=== PATIENT | male | born 1945 | race Caucasian/White ===

== ENCOUNTER 2023-01-12 06:25 | Observation (INO) | payer MEDICARE, SELFPAY ==
[2023-01-12] VITALS (16 sets, daily range): BP systolic 116–175; BP diastolic 63–87; PULSE 47–71; RESP 18–20; TEMP 36–36.6; O2SAT 96–100; BMI 29.3; BMI 29.7
--- NOTE | 2023-01-12 06:43 | DI.RAD.S_ITS ---
PROCEDURE: XR CHEST 1V INDICATIONS: chest pain TECHNIQUE: One view of the chest was acquired. COMPARISON: None. FINDINGS: Surgical changes and devices: None. Lungs and pleura: Lungs are clear. No pleural effusions or pneumothorax. Mediastinum: Mediastinal contours appear normal. Heart size is normal. Bones and chest wall: No suspicious bony lesions. Overlying soft tissues appear unremarkable. IMPRESSION: No acute cardiopulmonary abnormality. Approved by: Catalino Acosta M.D. on 01/12/2023 at 7:43
[2023-01-12 07:02] LABS: Add Manual Diff / Slide Review NO; Basophils Absolute Auto 0 /uL (0-100); Basophils Percent Auto 0.5 % (0-2); Eosinophils Absolute Auto 200 /uL (0-450); Hematocrit 40.2 % (41-53); Hemoglobin 14.3 g/dL (13.5-17.5); Lymphocytes Absolute Auto 1400 /uL (1100-4500); Lymphocytes Percent Auto 15.5 % (25-40); Mean Corpuscular HGB Conc 35.5 % (30-36); Mean Corpuscular Hemoglobin 32.4 PG (26-34); Mean Corpuscular Volume 91.2 fL (80-100); Monocytes Absolute Auto 800 /uL (0-900); Monocytes Percent Auto 9.5 % (3-14); Neutrophils Absolute Auto 6500 /uL (1500-7000); Neutrophils Percent Auto 72.5 % (50-75); Platelet Count 257 X10^3/uL (150-400); Red Blood Cell Count 4.41 X10^6/uL (4.5-5.9); Red Cell Distribution Width 13.8 % (11.6-14.8); White Blood Cell Count 8.9 X10^3/uL (4.5-11.0)
[2023-01-12 07:05] LABS: INR 1.1 (0.9-1.3); Prothrombin Time 12.3 SECONDS (10.1-12.7)
[2023-01-12 07:08] LABS: PTT Partial Thromboplastin Tim 29 SECONDS (26-36)
--- NOTE | 2023-01-12 07:09 | ED_ITS ---
HPI - Chest Pain General Chief Complaint: Chest Pain Stated Complaint: problem with lung getting worse Time Seen by Provider: 01/12/23 06:56 Source: patient Mode of arrival: Ambulatory Limitations: no limitations History of Present Illness HPI narrative: Patient is a 77-year-old male who is here for evaluation of approximately 5 days of intermittent chest pressure. States that at the beginning of the symptoms he did have some back discomfort but that has resolved. Initially he thought that he would just pulled a muscle because he just recently moved to the area and he has been moving some boxes but he states that it now does not feel like a pulled muscle. He does have a cough and has some baseline lung issues but this is not new for him. No nausea or vomiting. No fevers. He states the symptoms are not worse with palpation or movement. No swelling in his legs. Has never had a heart attack before. 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 Denies any fevers. Has not tried anything for symptoms prior to arrival. Related Data Home Medications Medication Instructions Recorded Confirmed losartan 25 mg tablet 25 mg PO DAILY 01/12/23 01/12/23 Allergies Allergy/AdvReac Type Severity Reaction Status Date / Time codeine AdvReac Verified 01/12/23 06:43 Iodinated Contrast Media AdvReac Swelling Verified 01/12/23 06:43 of the Eye Review of Systems Review of Systems ROS Unobtainable: All systems reviewed & are unremarkable except as noted in HPI and below Patient History Social History Smoking Status: Never smoker Smoking Status: Never smoker alcohol intake frequency: 0-2 drinks per day Substance Use Type: does not use Exam Initial Vital Signs Initial Vital Signs: Vital Signs Temperature 96.8 F L 01/12/23 06:33 Pulse Rate 71 01/12/23 06:33 Respiratory Rate 20 01/12/23 06:33 Blood Pressure 153/79 H 01/12/23 06:33 Pulse Oximetry 99 01/12/23 06:33 Oxygen Delivery Method Room Air 01/12/23 06:33 Const General: cooperative, comfortable and No ill appearing HENMT Head: normal to inspection and normocephalic Chest Chest: No crepitus and No tenderness Resp Effort & Inspection: normal respiratory effort Auscultation: clear to auscultation bilaterally Cardio Rate: regular rate Rhythm: regular rhythm GI Inspection: normal to inspection and non-distended Skin General: no rashes or lesions noted Neuro General: patient alert, patient awake, patient oriented x3 and moves all extremities Speech: speech normal Extrem General: No edema Scores HEART Score Heart Score history: Slightly Suspicious Heart Score EKG: Non-Specific repolarization disturbance Heart Score Age: > or = 65 years old Heart Score risk factors: 1-2 risk factors Heart Score troponin: < or = to normal limit Heart Score Total: 4 Course Orders Ordered: ED Orders 01/12/23 EKG-12 Lead Routine 01/12/23 06:43 XR chest 1V Stat EKG-12 Lead Stat 01/12/23 06:50 Complete Blood Count AUTO DIFF Stat Comprehensive Metabolic Panel Stat Lipase Stat Magnesium Stat PTT Partial Thromboplastin Ankit Stat Prothrombin Time INR Stat Troponin & CK Cardiac Panel Stat Discontinued Medications Aspirin (Aspirin 81 Mg Chew Tab) 324 mg PO NOW ONE Stop: 01/12/23 06:44 Last Admin: 01/12/23 07:35 Dose: 324 mg Documented By: AT Vital Signs Vital signs: Vital Signs - 8 hr 01/12/23 06:33 01/12/23 07:04 01/12/23 07:25 Temperature 96.8 F L Pulse Rate 71 55 L Respiratory Rate 20 Blood Pressure 153/79 H 150/84 H Pulse Oximetry 99 97 Oxygen Delivery Method Room Air Room Air 01/12/23 07:25 01/12/23 07:30 01/12/23 07:30 Temperature Pulse Rate 59 L 51 L Respiratory Rate Blood Pressure 130/63 Pulse Oximetry 97 98 Oxygen Delivery Method Room Air Room Air MDM - Chest Pain Lab Data Attestation: I reviewed the patient's lab results. 01/12/23 06:50 01/12/23 06:50 Labs: Lab Results 01/12/23 01/12/23 01/12/23 Range/Units 06:50 06:50 06:50 WBC 8.9 (4.5-11.0) X10^3/uL RBC 4.41 L (4.5-5.9) X10^6/uL Hgb 14.3 (13.5-17.5) g/dL Hct 40.2 L (41-53) % MCV 91.2 (80-100) fL MCH 32.4 (26-34) PG MCHC 35.5 (30-36) % RDW 13.8 (11.6-14.8) % Plt Count 257 (150-400) X10^3/uL Neut % (Auto) 72.5 (50-75) % Lymph % (Auto) 15.5 L (25-40) % [place] % (Auto) 9.5 (3-14) % Eos % (Auto) 2.0 (2-4) % Baso % (Auto) 0.5 (0-2) % Neut # (Auto) 6500 (8270-0107) /uL Lymph # (Auto) 1400 (7165-7457) /uL [place] # (Auto) 800 (0-900) /uL Eos # (Auto) 200 (0-450) /uL Baso # (Auto) 0 (0-100) /uL PT 12.3 (10.1-12.7) SECONDS INR 1.1 (0.9-1.3) APTT 29 (26-36) SECONDS Sodium 137 (137-145) mmol/L Potassium 4.2 (3.4-5.1) mmol/L Chloride 102 (98-107) mmol/L Carbon Dioxide 29 (22-32) mmol/L BUN 16 (9-20) mg/dL Creatinine 0.98 (0.66-1.25) mg/dL Estimated GFR > 60 (>60) mL/min BUN/Creatinine Ratio 16.3 (6-22) Glucose 103 (80-110) mg/dL Calcium 8.9 (8.4-10.2) mg/dL Magnesium 1.9 (1.6-2.3) mg/dL Total Bilirubin 1.4 H (0.2-1.3) mg/dL AST 30 (17-59) IU/L ALT 28 (<50) IU/L Alkaline Phosphatase 100 (38-126) U/L Total Creatine Kinase 219 H (55-170) U/L CK-MB (CK-2) TNP CK-MB (CK-2) Rel Index TNP Troponin I < 0.012 (0.01-0.034) ng/mL Total Protein 7.0 (6.3-8.2) g/dL Albumin 4.0 (3.5-5.0) g/dL Globulin 3.0 (1.7-4.1) g/dL Albumin/Globulin Ratio 1.3 (1.0-2.8) Lipase 93 (23-300) U/L Imaging Data Chest x-ray: Radiologist's Impression: PROCEDURE:? XR CHEST 1V ? INDICATIONS:? chest pain ? TECHNIQUE:? One view of the chest was acquired.? ? COMPARISON:? None. ? FINDINGS:? ? Surgical changes and devices:? None.? ? Lungs and pleura:? Lungs are clear.? No pleural effusions or pneumothorax.? ? Mediastinum:? Mediastinal contours appear normal.? Heart size is normal.? ? Bones and chest wall:? No suspicious bony lesions.? Overlying soft tissues appear unremarkable.? ? ECG Data Attestation: I personally reviewed and interpreted this ECG as follows: Interpretation: Sinus bradycardia Ventricular rate of 56 First-degree AV block CO interval 210 milliseconds Been right bundle-branch block Left anterior fascicular block Left axis deviation Nonspecific ST T wave changes MDM Narrative Medical decision making narrative: Patient has a heart score of 4. Given his age and other risk factors in his intermittent chest pressure over the past couple days in the fact that he does not have a primary care doctor because he is new to the area patient does require admission to the hospital for further risk stratification testing. I did discuss this with him and his . They expressed understanding and a greement. I also discussed the case with Dr. Lopez who will admit for further evaluation and treatment as well. Discharge Plan Departure Patient Disposition: Admitted as Observation Clinical Impression: Chest pain Admit Date/Time: 01/12/23 07:42 Admit Provider: Kay Lopez
[2023-01-12 07:13] LABS: Alanine Aminotransferase 28 IU/L (<50); Albumin Globulin Ratio 1.3 (1.0-2.8); Alkaline Phosphatase 100 U/L (38-126); Aspartate Aminotransferase 30 IU/L (17-59); BUN Creatinine Ratio 16.3 (6-22); Bilirubin Total 1.4 mg/dL (0.2-1.3); Blood Urea Nitrogen 16 mg/dL (9-20); Calcium 8.9 mg/dL (8.4-10.2); Carbon Dioxide 29 mmol/L (22-32); Chloride 102 mmol/L (98-107); Creatine Kinase 219 U/L (55-170); Estimated Glomerular Filt Rate > 60 mL/min (>60); Glucose 103 mg/dL (80-110); HEMOLYSIS 24 (0-50); Lipase 93 U/L (23-300); Magnesium 1.9 mg/dL (1.6-2.3); Potassium 4.2 mmol/L (3.4-5.1); Sodium 137 mmol/L (137-145)
[2023-01-12 07:24] LABS: Troponin I < 0.012 ng/mL (0.01-0.034)
[2023-01-12] MEDS: ASPIRIN 81 MG CHEW TAB 324 MG PO (07:35)
--- NOTE | 2023-01-12 10:10 | PM.HP.1 ---
History of Present Illness History of Present Illness Date Patient Seen: 01/12/23 Time Patient Seen: 09:45 Chief complaint: chest pain Narrative: Pt is 77 yo male with history of hypertension, chronic cough, brain aneurysm clipping presents to ED with c/o intermittent chest pain. Discomfort started 5 days ago when felt substernal discomfort which lasted through the night. He thought perhaps the pain was due to lifting boxes since patient and spouse had just moved to town. Pain occurs at rest and seems dull/pressure-like but worse when takes a deep breath. Over the weekend he participated in 5K race walking and noticed some discomfort. Yesterday he had pain which radiated to the neck. Patient is very active and walks 30 miles a week and also often runs 2.[address] races. Initial troponin negative. EKG: s. eb, RBBB, LAFB, possible old septal CT (personally reviewed). CXR: normal. Pt recalls he had cardiac cath over 10 years ago as part of cough/dyspnea work-up. , non-smoker. Mother of lung CA. Father alive at 98. 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 Social History Smoking Status: Never smoker Meds Home Medications and Allergies Home Medications Medication Instructions Recorded Confirmed Type losartan 25 mg tablet 25 mg PO DAILY 01/12/23 01/12/23 History Allergies Allergy/AdvReac Type Severity Reaction Status Date / Time codeine AdvReac Verified 01/12/23 06:43 Iodinated Contrast Media AdvReac Swelling Verified 01/12/23 06:43 of the Eye Exam Vital Signs (past 8 hours): - 01/12/23 06:33 01/12/23 07:04 01/12/23 07:25 Temperature 96.8 F L Pulse Rate 71 55 L Respiratory Rate 20 Blood Pressure 153/79 H 150/84 H Pulse Oximetry 99 97 Oxygen Delivery Method Room Air Room Air 01/12/23 07:25 01/12/23 07:30 01/12/23 07:30 Temperature Pulse Rate 59 L 51 L Respiratory Rate Blood Pressure 130/63 Pulse Oximetry 97 98 Oxygen Delivery Method Room Air Room Air 01/12/23 08:00 01/12/23 08:00 01/12/23 08:30 Temperature Pulse Rate 54 L Respiratory Rate Blood Pressure 130/66 116/66 Pulse Oximetry 99 Oxygen Delivery Method Room Air 01/12/23 08:30 01/12/23 09:00 01/12/23 09:00 Temperature Pulse Rate 47 L 49 L Respiratory Rate 18 Blood Pressure 126/73 Pulse Oximetry 99 100 Oxygen Delivery Method Room Air Room Air Oxygen Delivery Method Room Air Narrative Exam Narrative: Gen: alert, WD/WN male NAD HEENT: pupils equal and reactive Neck: no mass, no enlarged LN Lungs: clear CV: nl S1S2, RRR, no murmur Abd: soft, nt, no bruit, no HSM Ext: no edema Neuro: nl affect and speech Objective Labs 01/12/23 06:50 01/12/23 06:50 Labs: Laboratory Results - last 24 hr 01/12/23 01/12/23 01/12/23 06:50 06:50 06:50 WBC 8.9 RBC 4.41 L Hgb 14.3 Hct 40.2 L MCV 91.2 MCH 32.4 MCHC 35.5 RDW 13.8 Plt Count 257 Neut % (Auto) 72.5 Lymph % (Auto) 15.5 L [place] % (Auto) 9.5 Eos % (Auto) 2.0 Baso % (Auto) 0.5 Neut # (Auto) 6500 Lymph # (Auto) 1400 [place] # (Auto) 800 Eos # (Auto) 200 Baso # (Auto) 0 PT 12.3 INR 1.1 APTT 29 Sodium 137 Potassium 4.2 Chloride 102 Carbon Dioxide 29 BUN 16 Creatinine 0.98 Estimated GFR > 60 BUN/Creatinine Ratio 16.3 Glucose 103 Calcium 8.9 Magnesium 1.9 Total Bilirubin 1.4 H AST 30 ALT 28 Alkaline Phosphatase 100 Total Creatine Kinase 219 H CK-MB (CK-2) TNP CK-MB (CK-2) Rel Index TNP Troponin I < 0.012 Total Protein 7.0 Albumin 4.0 Globulin 3.0 Albumin/Globulin Ratio 1.3 Lipase 93 Assessment & Plan Assessment & Plan narrative: 1. Atypical chest pain -described as dull pressure, worse with deep breath but not classically pleuritic, + cardiac risk factors of HTN, age, doubt PE with absence of LE swelling or classic pleuritic pain, nl sats and not tachycardic -no ST/T wave ischemic changes on EKG -nl initial trop -admit to obs, telemetry -serial troponin -stress MIBI -check lipids 2. Hypertension -cont losartan 25 mg qd 3. Sinus bradycardia -chronic, asymptomatic, baseline LAFB and RBBB on EKG
--- NOTE | 2023-01-12 10:37 | PC.NURSE ---
Patient transported via wheelchair to Stress Test.
[2023-01-12 11:34] LABS: Cholesterol 156 mg/dL (140-199); HDL Cholesterol 43 mg/dL (40-60); LDL Cholesterol Calculated 90 mg/dL (<100); Triglycerides 117 mg/dL (35-150)
--- NOTE | 2023-01-12 14:15 | DI.NM.S_ITS ---
DATE OF SERVICE: 01/12/2023 PROCEDURE: Exercise perfusion study. INDICATIONS: Hypertension, chest pain. Patient is 77 years old. RADIOPHARMACEUTICAL: 27.5 millicurie technetium-99m Myoview IV was injected at stress and 10.2 millicurie technetium-99m Myoview IV was injected at rest. CARDIAC STRESS: The patient underwent exercise perfusion study under the supervision of an attending staff. The patient walked on Jimy protocol for 8 minutes and 28 seconds, achieved maximum heart rate of 148, which was 103 percent of target heart rate. Achieved 10.1 METS of workload. MERARI -39%. Resting blood pressure 132/90 mmHg. Peak blood pressure 218/98 mmHg. Baseline rhythm was sinus with first-degree AV block, right bundle branch block and left anterior fascicular block. Some premature atrial contractions. During exercise and early recovery patient has frequent PACs as well as intermittent PVCs without any ventricular tachycardia or obvious atrial fibrillation. Atrial couplets were seen as well. The patient has atypical chest discomfort at peak exercise, getting worse with deep breathing, which got resolved in recovery in 5 minutes. No associated ischemic changes. RAW DATA: There is increased subdiaphragmatic activity. The patient's weight is 235 pounds. GATED STUDY: Stress LV ejection fraction 72%. I do not see any obvious wall motion abnormalities. Resting end-diastolic volume 129 mL. TID ratio 0.96, which is within normal limits. Lung/heart ratio 0.21, which is within normal limits. MYOCARDIAL PERFUSION SCAN: Stress supine, resting supine and stress prone images were compared to each other. Stress supine and resting supine images revealed large size, severely decreased perfusion of inferior wall extending into the inferior apex, basal inferoseptum, as well as basal inferolateral wall, which got significantly improved during stress prone images. However stress prone images remaining have a small size, mildly decreased perfusion of inferior wall and inferior apex. There is also predominantly fixed, small size, mild to moderately decreased perfusion of basal to mid anterior wall. No obvious reversible ischemia. CONCLUSION: 1. No obvious reversible ischemia. 2. There is a fixed small size, mild to moderately decreased perfusion of basal to mid anterior wall without any reversible ischemia. 3. Large size severely decreased perfusion of inferior wall extending into the inferoapex and basal inferolateral, as well as basal inferior septal wall defect got significantly improved during stress prone images, however, stress prone images remained to have persistent small size, mildly decreased perfusion of inferior wall and inferior apex. On raw data, there is increased subdiaphragmatic activity. Diaphragmatic shadow seen as well. The patient's weight is 235 pounds. There are no wall motion abnormalities. Anterior wall and inferior wall moving well along with apex. This could be due to persistent tissue attenuation artifact, however, cannot rule out small inferior wall, inferoapex, as well as basal to mid old anterior wall myocardial infarction. Excellent exercise tolerance. MERARI -39%. Hypertensive blood pressure response. Atypical chest pain without any ischemic electrocardiographic changes. Intermittent PACs as well as PVCs without any complex arrhythmia-like ventricular tachycardia or atrial fibrillation. Correlate clinically. Jose Armando Armstrong - ARTHUR/vickey/ doc#: [id number]/job#: [id number] dd: 01/12/2023 12:59:00 dt: 01/12/2023 14:05:00 DICTATING /COPIES TO: Deana Vizcarra MD COPIES MNE: KATERINA;
[2023-01-12 16:10] LABS: D Dimer 465 ng/ml (<500)
[2023-01-12 16:24] LABS: Troponin I < 0.012 ng/mL (0.01-0.034)
[2023-01-12 22:58] LABS: Troponin I 0.013 ng/mL (0.01-0.034)
[2023-01-13] VITALS: BP 129/68; PULSE 64; RESP 18; TEMP 36.6; O2SAT 96
[2023-01-13 04:00] VITALS: BP 130/78; PULSE 63; RESP 18; TEMP 36.4; O2SAT 98
[2023-01-13 08:00] VITALS: BP 134/87; PULSE 75; RESP 18; TEMP 36.1; O2SAT 97
[2023-01-13 09:38] VITALS: BP 134/87
[2023-01-13] MEDS: SODIUM CHLORIDE 0.9% FLUSH 10 ML IV (09:38)
[2023-01-13] MEDS: LOSARTAN 25 MG TABLET PO (09:38)
--- NOTE | 2023-01-13 10:43 | DI.ECHO.S_ITS ---
[facility] +---------+ : : [address] : : : : [id number] : : : : Phone: [phone]+ Echocardiogram Report + + :Name: JOB SERRANO Study Date: 01/13/2023 Height: 75 in : :[facility] ReadingLocation: Weight: 238 lb : : Gender: Male BSA: 2.4 m2 : :: 1945 Age: 77 yrs BP: 134/87 mmHg: :Reason For Study: CHEST PAIN : :Ordering Physician: NIKHIL, : :BEATRIZ Performed By: Michelle Taylor : :Referring: BEATRIZ TEJEDA : + + Interpretation Summary Normal sinus rhythm with occasional PACs. Normal LV size and wall thickness. Normal wall motion and LV systolic function. Ejection fraction 60-65%. Normal chamber sizes. Mild mitral regurgitation. Otherwise no significant valvular abnormalities. No prior study available for comparison. Procedure: A two-dimensional transthoracic echocardiogram with color flow and Doppler was performed. The study quality was technically adequate. There is no prior echocardiogram noted for this patient. The patient had occasional PACs during the exam. Left Ventricle: The left ventricle is normal in size and wall thickness. The ejection fraction is estimated to be 60-65%. Right Ventricle: The right ventricle is normal size. The right ventricular systolic function is normal. Atria: The left atrial size is normal. Right atrial size is normal. There is no Doppler evidence for an interatrial shunt. Mitral Valve: The mitral valve is normal in structure and function. There is mild mitral regurgitation. Aortic Valve: The aortic valve is trileaflet. The aortic valve opens well. There is no aortic valve stenosis. There is mild aortic regurgitation. Tricuspid Valve: The tricuspid valve is normal in structure and function. There is mild tricuspid regurgitation. The right ventricular systolic pressure is estimated to be at least 31 mmHg based on an estimated right atrial pressure of 3 mm Hg. Pulmonic Valve: The pulmonic valve leaflets are thin and pliable; valve motion is normal. There is mild pulmonic regurgitation. Great Vessels: The aortic root is normal size. The dimensions of the ascending aorta are normal. The IVC is of normal diameter and collapses greater than 50% with a sniff. This suggests a low right atrial pressure of 3 mm Hg. Pericardium/ Pleura There is no pericardial effusion. There is no pleural effusion. MMode/2D Measurements & Calculations LVIDd: 4.7 cm LVOT diam: 2.2 cm LVIDs: 2.9 cm Ao root diam: 3.4 cm FS: 38.1 % asc Aorta Diam: 3.2 cm EPSS: 0.52 cm Ao Arch Diam (Prox Trans): 2.8 cm IVSd: 0.86 cm LVPWd: 0.98 cm LV salas. diameter/BSA (cm/m^2): 2.0 LV sys. diameter/BSA (cm/m^2): 1.2 LA A2 area: 22.2 cm2 RA long axis: 5.6 cm LA A4 area: 18.2 cm2 RA area: 17.7 cm2 LA length (vol): 5.6 cm RA vol: 47.6 ml LA vol: 61.6 ml RA : 20.1 ml/m2 LA vol index: 26.1 ml/m2 IVC diam: 1.4 cm RVD1 (basal): 4.2 cm RVD2 (mid): 3.3 cm TAPSE: 2.2 cm Doppler Measurements & Calculations Ao V2 max: 126.9 cm/sec LVOT Max Kevin: 112.3 cm/sec Ao V2 mean: 95.4 cm/sec LV V1 max P.0 mmHg Ao max P.4 mmHg LV V1 VTI: 23.8 cm Ao mean P.9 mmHg MANGO(I,D): 3.6 cm2 Ao V2 VTI: 24.3 cm MANGO(V,D): 3.3 cm2 sev ratio: 0.98 MANGO indexed to BSA (cm^2/m^2): 1.5 MV E max kevin: 110.9 cm/sec TR max kevin: 267.3 cm/sec MV A max kevin: 68.6 cm/sec TR max P.6 mmHg MV E/A: 1.6 PA V2 max: 170.2 cm/sec Med Peak E' Kevin: 5.7 cm/sec PA V2 mean: 111.5 cm/sec E/E' med: 19.4 PA mean P.8 mmHg Lat Peak E' Kevin: 8.0 cm/sec PA pr(Accel): 24.2 mmHg E/E' lat: 13.9 E/e' average: 16.6 MV dec time: 0.22 sec SV(LVOT): 88.7 ml Electronically signed by: Yovana Clinton M.D. on Reading Physician:01/13/2023 03:05 PM
[2023-01-13 12:00] VITALS: BP 142/77; PULSE 64; RESP 18; TEMP 36.2; O2SAT 100; O2SAT 97
--- NOTE | 2023-01-13 12:45 | PM.DS.1 ---
History of Present Illness History of Present Illness Chief complaint: chest pain Narrative: Pt is 77 yo male with history of hypertension, chronic cough, brain aneurysm clipping presents to ED with c/o intermittent chest pain. Discomfort started 5 days ago when felt substernal discomfort which lasted through the night. He thought perhaps the pain was due to lifting boxes since patient and spouse had just moved to town. Pain occurs at rest and seems dull/pressure-like but worse when takes a deep breath. Over the weekend he participated in 5K race walking and noticed some discomfort. Yesterday he had pain which radiated to the neck. Patient is very active and walks 30 miles a week and also often runs 2.[address] races. Initial troponin negative. EKG: s. eb, RBBB, LAFB, possible old septal [place] (personally reviewed). CXR: normal. Pt recalls he had cardiac cath over 10 years ago as part of cough/dyspnea work-up. , non-smoker. Mother of lung CA. Father alive at 98. Discharge Providers Provider Date of admission: 01/12/23 07:42 Discharge Date: 01/13/23 Primary care physician: Doctor Leena MD Discharge provider: Venkatesh Cruz MD Summary Hospital Course Discharge Diagnosis: 1. Chest pain, precordial 2. Costochondritis 3. Hypertension, controlled 4. Chronic cough 5. Bifascicular block Stress MIBI:1. ? No obvious reversible ischemia. 2. ? There is a fixed small size, mild to moderately decreased perfusion of basal to mid anterior wall without any reversible ischemia. 3. ? Large size severely decreased perfusion of inferior wall extending into the inferoapex and basal inferolateral, as well as basal inferior septal wall defect got significantly improved during stress prone images, however, stress prone images remained to have persistent small size, mildly decreased perfusion of inferior wall and inferior apex.? On raw data, there is increased subdiaphragmatic activity.? Diaphragmatic shadow seen as well.? The patient's weight is 235 pounds.? There are no wall motion abnormalities.? Anterior wall and inferior wall moving well along with apex.? This could be due to persistent tissue attenuation artifact, however, cannot rule out small inferior wall, inferoapex, as well as basal to mid old anterior wall myocardial infarction. Excellent exercise tolerance.? MERARI -39%. Hypertensive blood pressure response. Atypical chest pain without any ischemic electrocardiographic changes. Intermittent PACs as well as PVCs without any complex arrhythmia-like ventricular tachycardia or atrial fibrillation.? Correlate clinically. ECHO: report pending Hospital Course: Pt ruled out with serial troponin and had negative d-dimer. Stress MIBI did not indicate reversible ischemia. Question of small fixed defect in mid anterior wall and inferior wall. Dr Vizcarra recommended outpatient CT coronary angiogram for risk stratification. An ECHO was done and report pending which will be reviewed with patient by Dr Adames prior to discharge. Pt intends to see Dr Ortiz for outpatient follow up. Over all symptoms are c/w costochondritis and NSAID recommendations were provided to patient. Exam Vital Signs (past 8 hours): - 01/13/23 08:00 01/13/23 09:38 01/13/23 08:00 Temperature 97 F L Pulse Rate 75 Respiratory Rate 18 Blood Pressure 134/87 134/87 Pulse Oximetry 97 97 Oxygen Delivery Method Room Air Oxygen Flow Rate 0 0 Oxygen Delivery Method Room Air Oxygen Flow Rate 0 Objective Labs 01/12/23 06:50 01/12/23 06:50 Labs: Laboratory Results - last 24 hr 01/12/23 01/12/23 01/12/23 14:24 15:55 22:20 D-Dimer 465 Troponin I < 0.012 0.013 COUNT INCLUDES THE [facility] Medical History (Updated 01/12/23 @ 22:39 by Josemanuel Vargas RN) Brain aneurysm (03/31/82) Gilbert syndrome (~1970) Hypertension (~1954) 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 Cardiac enzymes and d-dimer were normal. Your stress test did show signs of major coronary occlusion. Consider getting CT coronary angiogram for further risk stratification. Your symptoms are most consistent with costochondritis, which is inflammation of the rib joints. Take either Ibuprofen 800 mg every 8 hours or Naproxen OTC 440 mg every 12 hours for a couple of weeks or until better. Discharge orders & Medications Prescriptions: Continued losartan 25 mg Tablet 25 mg PO DAILY Follow up/Referrals: Miscellaneous,DoctorMD [Primary Care Provider] - Judah Ortiz DO [Physician] - Diet/Activity/Treatments Diet: Regular Visit Report/Discharge Packet Stand Alone Forms: Patient Portal/API, Stroke Signs & Symptoms Discharge Data Primary Care Provider: Karencellame,Doctor Attending Provider: Kay Lopez Admjessica Date/Time: 01/12/23 07:42 Quality VTE Deep Vein Thrombosis/Pulmonary Embolism Present on Admission: No
--- NOTE | 2023-01-13 15:15 | CM.DANOTE ---
DCP: Chart review for case, met with patient at bedside, they agree to case management assessment. Completed DCP assessment based on information available. Patient is an 82 year old admitted for planned prostatectomy with nodes and lysis of adhesions. He is slow to respond to CM questions and answers tangentially. He relays that he does have some memory impairment. Shanell is at bedside and fills in answers for him when he cannot. He relays that he walks with cane, lives in single level home on [address]. Still drives, but admits to getting lost sometimes while driving. CC: Prostate Ca/planned prostatectomy PCP: Raymundo Hester Payer: Medicare DCP: Home with Ny. will be transfer driver. P: Mobility, pain control. Magalis Melton RN, CM Discharge Planning/Care Management Advanced directive, confirm from FAMILY Start: 01/12/23 13:02 Freq: Q24H Status: Active Protocol: Document 01/12/23 13:02 MM (Rec: 01/12/23 13:05 MM [id number]) Advance Directive, confirm on record Time 13:05 Person contacted pt Copy received No CM Discharge Assessment Start: 01/13/23 15:13 Freq: Status: Active Protocol: Document 01/13/23 15:13 BQ (Rec: 01/13/23 15:15 BQ [id number]) Discharge Planning Assessment Assigned Sign Artist Magalis Melton RN, CM Advance Directives? Yes Advance Directives on File No History Provided By Patient Has Patient been admitted in last 30 No days? Prior Living Arrangements House Household Members spouse Type of transporation used prior to Relies on Others admit Independent with ADL's Yes Is patient alert and oriented? Yes: States history of memory impairment Caregiver for Another No DME Already Rented / Owned Cane Barriers to Discharge Yes Comment Pain, mobility, Ny and post removal void. Referrals Initiated None needed Medicare Choice List Provided No Whiteboard Updated in Patient Room with Yes name and ext. # of Sign Artist Review Status In Process Next Review Type Continued Stay Review
--- NOTE | 2023-01-13 15:30 | PC.NURSE ---
Pt is dressed and ready for discharge home with Spouse. IV and tele removed. Went over d/c instructions with Pt and Spouse-discussed d/c meds, time of last dose, reviewed stroke education, and follow up plan. Pt denied further questions and will be ready to go home with Spouse as soon as he speaks with Dr. Adames.
--- NOTE | 2023-01-13 16:04 | CM.DANOTE ---
DCP: Case received, EMR reviewed and met with patient. Spouse, Karen, was at bedside. Introduced self and role. Was able to obtain information regarding patient's baseline activity level prior to hospitalization. DCP assessment completed with information currently available. Patient is a 77 year old male who admitted yesterday morning to the care of the hospitalist team. PCP: None locally, is establishing with Dr. Ortiz at [facility]. Payer: confirmed: Medicare/[employer]ARP. Patient came to the hospital via private vehicle secondary to chest pain. Patient had complaints of pain when taking a deep breath. Notes indicate that patient is active at baseline, walks about 30 miles a week, runs short distances. Patient moved up here from [place], [place] about 5 days ago. Patient was diagnosed with pleuritic pain, had stress test and echo today. Met with patient and spouse. Patient is independent at baseline, spouse went over to [facility] and set up future appointment with Dr. Ortiz, has no primary care provider. P: Patient is discharging home today with no needs. Beata Goldstein RN/Senior Technical Business Analyst Discharge Planning/Care Management Advanced directive, confirm from FAMILY Start: 01/12/23 13:02 Freq: Q24H Status: Active Protocol: Document 01/12/23 13:02 MM (Rec: 01/12/23 13:05 MM [id number]) Advance Directive, confirm on record Time 13:05 Person contacted pt Copy received No CM Discharge Assessment Start: 01/13/23 15:13 Freq: Status: Active Protocol: Document 01/13/23 15:13 BQ (Rec: 01/13/23 15:15 BQ [id number]) Discharge Planning Assessment Assigned Senior Media Director Magalis Melton RN CM Advance Directives? Yes Advance Directives on File No History Provided By Patient Has Patient been admitted in last 30 No days? Prior Living Arrangements House Household Members spouse Type of transporation used prior to Relies on Others admit Independent with ADL's Yes Is patient alert and oriented? Yes: States history of memory impairment Caregiver for Another No DME Already Rented / Owned Cane Barriers to Discharge Yes Comment Pain, mobility, Ny and post removal void. Referrals Initiated None needed Medicare Choice List Provided No Whiteboard Updated in Patient Room with Yes name and ext. # of Senior Media Director Review Status In Process Next Review Type Continued Stay Review Document 01/13/23 15:58 VM (Rec: 01/13/23 15:59 [id number]) Discharge Planning Assessment Assigned Senior Media Director Beata Goldstein RN/Senior Technical Business Analyst Advance Directives? Yes Advance Directives on File No History Provided By Patient Has Patient been admitted in last 30 No days? Prior Living Arrangements House Household Members spouse Type of transporation used prior to Drives own vehicle admit Independent with ADL's Yes Is patient alert and oriented? Yes Caregiver for Another No DME Already Rented / Owned Cane Barriers to Discharge Yes Comment . Referrals Initiated None needed Medicare Choice List Provided No Whiteboard Updated in Patient Room with Yes name and ext. # of Senior Media Director Review Status In Process Next Review Type Continued Stay Review
--- NOTE | 2023-01-13 16:15 | PC.NURSE ---
Pt out via w/c by RN to POV with Spouse and all belongings.
== END 2023-01-13 16:15 | disposition home or self-care (01) ==
LOC: ED 07:43 → AC 07:43
PROVIDERS: Emergency Medicine; Internal Medicine; Admitting Provider Neuromusculoskeletal Medicine, Sports Medicine; Emergency Provider Emergency Medicine; Referring Provider Emergency Medicine; Visit Provider Neuromusculoskeletal Medicine, Sports Medicine
DX: R07.89 Other chest pain (principal); I10 Essential (primary) hypertension; R00.1 Bradycardia, unspecified
CPT/HCPCS: 36415; 71045; 78452; 80053; 80061; 82550; 83690; 83735; 84484; 85025; 85379; 85610; 85730; 93005; 93010; 93017; 93306; 99284; G0378; A9502

== ENCOUNTER 2023-04-12 14:08 | Emergency (ER) | payer MEDICARE, SELFPAY ==
[2023-01-12 07:47] VITALS: BMI 29.7
[2023-04-12] VITALS (8 sets, daily range): BP systolic 110–166; BP diastolic 65–86; PULSE 67–112; RESP 18–27; TEMP 36.8; O2SAT 93–96; BMI 29.3
--- NOTE | 2023-04-12 14:23 | DI.RAD.S_ITS ---
PROCEDURE: XR CHEST 1V INDICATIONS: chest pain TECHNIQUE: One view of the chest was acquired. COMPARISON: [facility], CR, XR CHEST 1V, 01/12/2023, 6:41. [facility], CT, CT ANGIO CHEST, 02/22/2023, 16:04. FINDINGS: Surgical changes and devices: None. Lungs and pleura: An incomplete inspiratory result is noted, causing a crowded appearance to the lung markings. No pneumothorax or significant pleural effusions are seen. Mild, streaky opacities are seen at the lung bases. Mediastinum: Mediastinal contours appear normal. Heart size is normal. Bones and chest wall: No suspicious bony lesions. Overlying soft tissues appear unremarkable. IMPRESSION: Low lung volumes, with likely atelectasis at the lung bases. Dictated by: Manuel Umaña M.D. on 04/12/2023 at 14:06 Approved by: Manuel Umaña M.D. on 04/12/2023 at 14:06
[2023-04-12 14:39] LABS: Add Manual Diff / Slide Review NO; Basophils Absolute Auto 100 /uL (0-100); Basophils Percent Auto 0.6 % (0-2); Eosinophils Absolute Auto 100 /uL (0-450); Hematocrit 40.8 % (41-53); Hemoglobin 14.6 g/dL (13.5-17.5); Lymphocytes Absolute Auto 1800 /uL (1100-4500); Lymphocytes Percent Auto 16.8 % (25-40); Mean Corpuscular HGB Conc 35.7 % (30-36); Mean Corpuscular Volume 89.6 fL (80-100); Monocytes Absolute Auto 700 /uL (0-900); Monocytes Percent Auto 6.9 % (3-14); Neutrophils Absolute Auto 8000 /uL (1500-7000); Neutrophils Percent Auto 74.7 % (50-75); Platelet Count 284 X10^3/uL (150-400); Red Blood Cell Count 4.56 X10^6/uL (4.5-5.9); Red Cell Distribution Width 13.7 % (11.6-14.8); White Blood Cell Count 10.8 X10^3/uL (4.5-11.0)
[2023-04-12 14:44] LABS: INR 1.2 (0.9-1.3); Prothrombin Time 13.2 SECONDS (10.1-12.7)
[2023-04-12 14:47] LABS: PTT Partial Thromboplastin Tim 29 SECONDS (26-36)
[2023-04-12 14:50] LABS: Alanine Aminotransferase 25 IU/L (<50); Albumin 4.1 g/dL (3.5-5.0); Albumin Globulin Ratio 1.4 (1.0-2.8); Alkaline Phosphatase 102 U/L (38-126); Aspartate Aminotransferase 26 IU/L (17-59); BUN Creatinine Ratio 20.2 (6-22); Bilirubin Total 1.4 mg/dL (0.2-1.3); Blood Urea Nitrogen 20 mg/dL (9-20); Calcium 9.2 mg/dL (8.4-10.2); Carbon Dioxide 26 mmol/L (22-32); Chloride 105 mmol/L (98-107); Creatine Kinase 156 U/L (55-170); Estimated Glomerular Filt Rate > 60 mL/min (>60); Globulin 2.9 g/dL (1.7-4.1); Glucose 123 mg/dL (80-110); HEMOLYSIS < 15 (0-50); Lipase 132 U/L (23-300); Magnesium 2.1 mg/dL (1.6-2.3); Potassium 3.9 mmol/L (3.4-5.1); Sodium 137 mmol/L (137-145)
[2023-04-12 15:01] LABS: Troponin I < 0.012 ng/mL (0.01-0.034)
--- NOTE | 2023-04-12 15:09 | ED.ARRPALP ---
HPI - Arrhythmia/Palpitations General Chief Complaint: Arrhythmia/Palpitations Stated Complaint: irregular heart rate Time Seen by Provider: 04/12/23 14:33 Source: patient Mode of arrival: Ambulatory History of Present Illness HPI narrative: Patient is a 77-year-old male who is here for evaluation of a irregular heart beat. He states he was admitted to the hospital several months ago for chest discomfort. Had a nuclear med perfusion study which showed no reversible ischemia but did show decreased perfusion. Also had an echocardiogram which was relatively unremarkable. Last week had a cardiac CT scan that was ordered by a product development worker that he is going to see within the next couple weeks. He stated that he could not get this test performed because he was told that his heart rate was very irregular. At the time he was having no specific symptoms. He states that today he went to go participate in a [employer]. he went to the medical tent and they took his pulse and they stated that it was elevated in the 110's he was not having any chest pain or shortness of breath. He stated that he did not run but walked the entire [employer]. he did not have chest pain or shortness of breath during this time. Because of the irregular heartbeat both prior to today's event and also during the CT scan he came to the emergency department. He does take atenolol for high blood pressure. Related Data Home Medications Medication Instructions Recorded Confirmed losartan 25 mg tablet 25 mg PO DAILY 01/12/23 02/12/23 Previous Rx's Medication Instructions Recorded prednisone 50 mg tablet 50 mg PO TID #3 tabs 02/19/23 metoprolol succinate 25 mg 25 mg PO BID #60 tabs 04/12/23 tablet,extended release 24 hr rivaroxaban 20 mg tablet (Xarelto) 20 mg PO DAILY #30 tabs 04/12/23 Allergies Allergy/AdvReac Type Severity Reaction Status Date / Time codeine AdvReac Nausea Verified 04/12/23 14:15 Iodinated Contrast Media AdvReac Swelling Verified 04/12/23 14:15 of the Eye Review of Systems Constitutional Constitutional: Reports system reviewed and no additional complaints, except as documented Cardiovascular Cardiovascular: Reports system reviewed and no additional complaints, except as documented Respiratory Respiratory: Reports system reviewed and no additional complaints, except as documented Gastrointestinal Gastrointestinal: Reports system reviewed and no additional complaints, except as documented Musculoskeletal Musculoskeletal: Reports system reviewed and no additional complaints, except as documented Integumentary/Breasts Skin/Breast: Reports system reviewed and no additional complaints, except as documented Hematologic/Lymphatic On Anticoagulants: No Patient History Medical History Actinic keratosis Chicken pox Chronic cough Gilbert syndrome (~1969) History of inferior wall myocardial infarction Hypertension (~1983) Measles Melanoma in situ (~2021) Migraines Mitral valve regurgitation Mumps 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 Skin cancer Surgical History Anesthesia Brain aneurysm (03/31/82) H/O right knee surgery (~10/13/17) History of arthroscopic knee surgery (~1999) History of back surgery (~2000) History of cerebral aneurysm repair History of rotator cuff surgery (~1996) Status post left partial knee replacement (~12/29/16) Status post right partial knee replacement (~01/26/18) Family History Mother Cancer Stroke Social History household members: spouse Smoking Status: Never smoker alcohol intake: never Smoking Status: Never smoker alcohol intake frequency: 0-2 drinks per day Substance Use Type: does not use Exam Initial Vital Signs Initial Vital Signs: Vital Signs Temperature 98.2 F 04/12/23 14:15 Pulse Rate 112 H 04/12/23 14:15 Respiratory Rate 19 04/12/23 14:15 Blood Pressure 166/80 H 04/12/23 14:15 Pulse Oximetry 95 04/12/23 14:15 Oxygen Delivery Method Room Air 04/12/23 14:15 Const General: cooperative, comfortable and No ill appearing HENMT Head: normal to inspection and normocephalic Resp Effort & Inspection: normal respiratory effort Auscultation: clear to auscultation bilaterally Cardio Rate: regular rate Rhythm: abnormal rhythm GI Inspection: normal to inspection Skin General: no rashes or lesions noted Neuro General: patient alert, patient awake, patient oriented x3 and moves all extremities Speech: speech normal Extrem General: normal to inspection and capillary refill normal Course Orders Ordered: ED Orders 04/12/23 14:23 XR chest 1V Stat EKG-12 Lead Stat 04/12/23 14:30 Complete Blood Count AUTO DIFF Stat Comprehensive Metabolic Panel Stat Lipase Stat Magnesium Stat PTT Partial Thromboplastin Ankit Stat Prothrombin Time INR Stat Troponin & CK Cardiac Panel Stat Discontinued Medications Aspirin (Aspirin 81 Mg Chew Tab) 324 mg PO NOW ONE Stop: 04/12/23 14:24 Last Admin: 04/12/23 15:22 Dose: Not Given Documented By: DINA Vital Signs Vital signs: Vital Signs - 8 hr 04/12/23 14:15 04/12/23 14:26 04/12/23 14:27 Temperature 98.2 F Pulse Rate 112 H 104 H Respiratory Rate 19 20 Blood Pressure 166/80 H 164/85 H Pulse Oximetry 95 96 Oxygen Delivery Method Room Air 04/12/23 14:30 04/12/23 14:30 Temperature Pulse Rate 103 H Respiratory Rate 20 Blood Pressure 150/77 H Pulse Oximetry 94 Oxygen Delivery Method MDM - Arrhythmia/Palpitations Lab Data Attestation: I reviewed the patient's lab results. 04/12/23 14:30 04/12/23 14:30 Labs: Lab Results 04/12/23 04/12/23 04/12/23 Range/Units 14:30 14:30 14:30 WBC 10.8 (4.5-11.0) X10^3/uL RBC 4.56 (4.5-5.9) X10^6/uL Hgb 14.6 (13.5-17.5) g/dL Hct 40.8 L (41-53) % MCV 89.6 (80-100) fL MCH 32.0 (26-34) PG MCHC 35.7 (30-36) % RDW 13.7 (11.6-14.8) % Plt Count 284 (150-400) X10^3/uL Neut % (Auto) 74.7 (50-75) % Lymph % (Auto) 16.8 L (25-40) % Freestone % (Auto) 6.9 (3-14) % Eos % (Auto) 1.0 L (2-4) % Baso % (Auto) 0.6 (0-2) % Neut # (Auto) 8000 H (1838-6637) /uL Lymph # (Auto) 1800 (4385-1806) /uL Freestone # (Auto) 700 (0-900) /uL Eos # (Auto) 100 (0-450) /uL Baso # (Auto) 100 (0-100) /uL PT 13.2 H (10.1-12.7) SECONDS INR 1.2 (0.9-1.3) APTT 29 (26-36) SECONDS Sodium 137 (137-145) mmol/L Potassium 3.9 (3.4-5.1) mmol/L Chloride 105 (98-107) mmol/L Carbon Dioxide 26 (22-32) mmol/L BUN 20 (9-20) mg/dL Creatinine 0.99 (0.66-1.25) mg/dL Estimated GFR > 60 (>60) mL/min BUN/Creatinine Ratio 20.2 (6-22) Glucose 123 H (80-110) mg/dL Calcium 9.2 (8.4-10.2) mg/dL Magnesium 2.1 (1.6-2.3) mg/dL Total Bilirubin 1.4 H (0.2-1.3) mg/dL AST 26 (17-59) IU/L ALT 25 (<50) IU/L Alkaline Phosphatase 102 (38-126) U/L Total Creatine Kinase 156 (55-170) U/L Troponin I < 0.012 (0.01-0.034) ng/mL Total Protein 7.0 (6.3-8.2) g/dL Albumin 4.1 (3.5-5.0) g/dL Globulin 2.9 (1.7-4.1) g/dL Albumin/Globulin Ratio 1.4 (1.0-2.8) Lipase 132 (23-300) U/L Imaging Data Chest x-ray: Radiologist's Impresson: PROCEDURE:? XR CHEST 1V ? INDICATIONS:? chest pain ? TECHNIQUE:? One view of the chest was acquired.? ? COMPARISON:? [facility], CR, XR CHEST 1V, 01/12/2023, 6:41.? [facility], CT, CT ANGIO CHEST, 02/22/2023, 16:04. ? FINDINGS:? ? Surgical changes and devices:? None.? ? Lungs and pleura:? An incomplete inspiratory result is noted, causing a crowded appearance to the lung markings.? No pneumothorax or significant pleural effusions are seen. ? Mild, streaky opacities are seen at the lung bases.? ? Mediastinum:? Mediastinal contours appear normal.? Heart size is normal.? ? Bones and chest wall:? No suspicious bony lesions.? Overlying soft tissues appear unremarkable.? ? ? IMPRESSION:? Low lung volumes, with likely atelectasis at the lung bases. ECG Data Attestation: I personally reviewed and interpreted this ECG as follows: Interpretation: Atrial flutter Ventricular rate 94 LVH Left axis deviation QTC 452 MDM Narrative Medical decision making narrative: Initially patient stated that he is on atenolol for blood pressure control but he is actually on losartan. He is not on any mary jane blocking agents. He did have periods of time here in the emergency department where his heart rhythm was atrial flutter however also periods of time where it was more irregular consistent with AFib. He is asymptomatic from this. Unsure the exact onset but most likely has been going on for at least a week. He is not on anticoagulation. He has had a brain aneurysm in the past that has been clipped. That was 40 years ago. He is had no further issues with bleeding. I did discuss the case with Dr. Ramírez on-call for cardiology who recommended placing the patient on metoprolol. Also started on anticoagulation. I did discuss this with the patient. We did discuss the risks and benefits of his prior brain aneurysm and the anticoagulation. He already has scheduled follow-up with Cardiology. He was given return precautions. He expressed understanding and agreement. Discharge Plan Departure Patient Disposition: Home Clinical Impression: Atrial flutter Instructions: DI for Atrial Flutter Activity Restrictions/Additional Instructions: I do recommend that you continue to take all of your current medications as directed and start the 2 new medicines that were prescribed today as directed. You are going to need follow-up with Cardiology. Return to the emergency department for new or worsening symptoms. Prescriptions: New metoprolol succinate 25 mg tablet extended release 24 hr 25 mg PO BID Qty: 60 0RF Xarelto 20 mg tablet 20 mg PO DAILY Qty: 30 2RF Rx Instructions: must administer with evening meal No Action prednisone 50 mg tablet 50 mg PO TID Qty: 3 0RF Rx Instructions: Take 1 tab 13 hrs, 7hrs, and 1 hr prior to procedure. Take final dosage with Benadryl 50mg OTC. losartan 25 mg Tablet 25 mg PO DAILY Referrals: Judah Ortiz, DO [Primary Care Provider] - Stand Alone Forms: Patient Portal/API
== END 2023-04-12 16:48 | disposition home or self-care (01) ==
PROVIDERS: Emergency Provider Emergency Medicine; PCP Family Medicine
DX: I48.92 Unspecified atrial flutter (principal); R07.9 Chest pain, unspecified
CPT/HCPCS: 36415; 71045; 80053; 82550; 83690; 83735; 84484; 85025; 85610; 85730; 93005; 99284

== ENCOUNTER → 2023-05-19 09:28 | Outpatient (CLI) | payer MEDICARE, SELFPAY ==
[2023-01-12 07:47] VITALS: BMI 29.7
--- NOTE | 2023-05-19 09:31 | DI.RAD.S_ITS ---
PROCEDURE: XR FOOT RT MIN 3V INDICATIONS: R paul/medial heel pain; stress fx vs bone spur/fasciitis TECHNIQUE: 3 views of the foot were acquired. COMPARISON: None. FINDINGS: Bones: No fractures or dislocations. Mild degenerative changes of the midfoot and interphalangeal joints. No suspicious bony lesions. Posterior calcaneal enthesophyte. Soft tissues: No tibiotalar joint effusion. Achilles tendon appears normal. Atherosclerotic vascular calcifications. IMPRESSION: Mild degenerative changes of the foot. Small posterior calcaneal spur. Dictated by: Tito Goncalves M.D. on 05/19/2023 at 9:45 Approved by: Tito Goncalves M.D. on 05/19/2023 at 9:47
== END ==
PROVIDERS: PCP Family Medicine; Referring Provider Student in an Organized Health Care Education/Training Program; Visit Provider Student in an Organized Health Care Education/Training Program
DX: M77.31 Calcaneal spur, right foot (principal); M79.671 Pain in right foot
CPT/HCPCS: 73630

== ENCOUNTER → 2023-08-01 08:37 | Outpatient (CLI) | payer MEDICARE, SELFPAY ==
[2023-06-05 10:24] VITALS: BMI 29.7
[2023-08-01 10:29] LABS: Alanine Aminotransferase 28 IU/L (<50); Albumin 4.3 g/dL (3.5-5.0); Albumin Globulin Ratio 1.3 (1.0-2.8); Alkaline Phosphatase 85 U/L (38-126); Aspartate Aminotransferase 29 IU/L (17-59); BUN Creatinine Ratio 18.9 (6-22); Bilirubin Total 1.7 mg/dL (0.2-1.3); Blood Urea Nitrogen 20 mg/dL (9-20); Calcium 9.9 mg/dL (8.4-10.2); Carbon Dioxide 33 mmol/L (22-32); Chloride 100 mmol/L (98-107); Estimated Glomerular Filt Rate > 60 mL/min (>60); Globulin 3.4 g/dL (1.7-4.1); Glucose 121 mg/dL (80-110); HEMOLYSIS < 15 (0-50); Potassium 4.4 mmol/L (3.4-5.1); Sodium 138 mmol/L (137-145); Total Protein 7.7 g/dL (6.3-8.2); Uric Acid 6.7 mg/dL (3.5-8.5)
[2023-08-01 10:36] LABS: Rheumatoid Factor < 8.6 IU/mL (<12.0)
[2023-08-01 11:00] LABS: Thyroid Stimulating Hormone 1.65 uIU/mL (0.47-4.68)
== END ==
LOC: LAB 08:39
PROVIDERS: PCP Family Medicine; Referring Provider Family Medicine; Visit Provider Family Medicine
DX: M79.89 Other specified soft tissue disorders (principal); M79.641 Pain in right hand; M79.642 Pain in left hand; R20.2 Paresthesia of skin; Z79.899 Other long term (current) drug therapy
CPT/HCPCS: 36415; 80053; 84443; 84550; 86430

== ENCOUNTER → 2023-10-15 13:18 | Outpatient (CLI) | payer MEDICARE, SELFPAY ==
[2023-06-05 10:24] VITALS: BMI 29.7
== END ==
PROVIDERS: Family Provider Family Medicine; PCP Family Medicine; Referring Provider Family Medicine; Visit Provider Family Medicine
DX: M79.641 Pain in right hand (principal); M79.642 Pain in left hand; M79.89 Other specified soft tissue disorders; R20.2 Paresthesia of skin
CPT/HCPCS: 95885; 95886; 95912

== ENCOUNTER → 2023-12-02 08:55 | Outpatient (CLI) | payer MEDICARE, SELFPAY ==
[2023-06-05 10:24] VITALS: BMI 29.7
--- NOTE | 2023-12-02 08:58 | DI.US.S_ITS ---
PROCEDURE: US ABDOMEN LIMITED INDICATIONS: Liver Hemangioma Follow-up TECHNIQUE: Real-time scanning was performed of the abdominal and retroperitoneal organs, with image documentation. COMPARISON: [facility], CT, CT ANGIO CHEST, 02/22/2023, 16:04. FINDINGS: Liver: The liver measures 13.4 cm and demonstrates increased echogenicity. No focal mass is visualized. Gallbladder: No gallstones. No wall thickening. No pericholecystic edema. Negative sonographic Madison's sign. Biliary ducts: Intrahepatic bile ducts are non-dilated. Extrahepatic bile duct caliber measures 4.3 mm. Normal is 6-7 mm or less in diameter, or 10 mm or less post-cholecystectomy. Pancreas: Visualized portions of the pancreas are sonographically normal. Miscellaneous: No free abdominal fluid. IMPRESSION: 1. Increased hepatic echogenicity noted likely related to fatty infiltration of the liver but other sources of hepatocellular disease cannot be excluded. 2. The questionable hepatic hemangioma described on the CT of the chest dated February 22, 2023 is not visualized on the current study, likely due to the markedly increased echogenicity of the liver. If further characterization is warranted, hepatic mass protocol CT or MRI could be used. Dictated by: Cece Daniel M.D. on 12/02/2023 at 10:24 Approved by: Cece Daniel M.D. on 12/02/2023 at 10:26
== END ==
PROVIDERS: Family Provider Family Medicine; PCP Family Medicine; Referring Provider Family Medicine; Visit Provider Family Medicine
DX: D18.03 Hemangioma of intra-abdominal structures (principal)
CPT/HCPCS: 76705

== ENCOUNTER → 2024-01-25 07:11 | Outpatient (CLI) | payer MEDICARE, SELFPAY ==
[2023-06-05 10:24] VITALS: BMI 29.7
[2024-01-25 09:06] LABS: Prostate Specific Antigen 2.43 ng/mL (0.10-4.00)
[2024-01-25 09:09] LABS: Testosterone 215 ng/dL (71.8-623)
== END ==
LOC: LAB 07:12
PROVIDERS: Family Provider Family Medicine; PCP Family Medicine; Referring Provider Urology; Visit Provider Urology
DX: N40.2 Nodular prostate without lower urinary tract symptoms (principal); E29.1 Testicular hypofunction
CPT/HCPCS: 36415; 84153; 84403

== ENCOUNTER → 2024-02-01 12:09 | Outpatient (CLI) | payer MEDICARE, SELFPAY ==
[2023-06-05 10:24] VITALS: BMI 29.7
--- NOTE | 2024-02-01 12:11 | DI.RAD.S_ITS ---
PROCEDURE: XR DEXA AXIAL SKELETON INDICATIONS: Chronic hypogonadism COMPARISON: None. FINDINGS: Lumbar Spine: Bone mineral density 1.738 g/cm2, T score 6.0. Left Hip: Bone mineral density 1.196 g/cm2, T score 2.1,. Left Femoral Neck: Bone mineral density 0.974 g/cm2, T score 1.1,. Right Hip: Bone mineral density 1.175 g/cm2, T score 1.9,. Right Femoral Neck: Bone mineral density 1.024 g/cm2, T score 1.6,. Fracture Risk Calculation (when applicable): On the left, 10-year fracture risk of a major osteoporotic fracture 3.9 percent and of a hip fracture 0.5 percent On the right, 10-year fracture risk of a major osteoporotic fracture 3.6 percent and of a hip fracture 0.4 percent. (T score greater or equal to -1.0 to: NORMAL) (T score from -1.1 to -2.4: OSTEOPENIA) (T score less than or equal to -2.5: OSTEOPOROSIS) IMPRESSION: Normal bone mineral density. Follow-up guidelines as follows: Osteoporosis: Consider a repeat DEXA and Vertebral Fracture Assessment (VFA) exam in 2 years or sooner if medically necessary, to reassess this patient's status. Osteopenia: Consider a repeat DEXA in 2-3 years to reassess this patient's status, or if there is a new clinical indication. Normal: Consider a repeat DEXA in 5 years or sooner, or if there is a new clinical indication. All treatment decisions require clinical judgment and consideration of individual patient factors, including patient preferences, comorbidities, previous drug use, risk factors not captured in the FRAX model (e.g., frailty, falls, vitamin D deficiency, increased bone turnover, interval significant decline in bone density ) and possible under- or over-estimation of fracture risk by FRAX. In addition, the NOF Guide recommends that FDA-approved medical therapies be considered in postmenopausal women and men age >= 50 years with a: * Hip or vertebral (clinical or morphometric) fracture * T-score of <=-2.5 at the spine or hip * Ten-year fracture probability by FRAX of >= 3% for hip fracture or >=20% for major osteoporotic fracture. People with diagnosed cases of osteoporosis or at high risk for fracture should have regular bone mineral density tests. For patients eligible for Medicare, routine testing is allowed once every 2 years. The testing frequency can be increased to one year for patients who have rapidly progressing disease, those who are receiving or discontinuing medical therapy to restore bone mass, or have additional risk factors. Approved by: Peggy Justice M.D.,Ph.D. on 02/01/2024 at 20:04
== END ==
PROVIDERS: Family Provider Family Medicine; PCP Family Medicine; Referring Provider Urology; Visit Provider Urology
DX: M81.8 Other osteoporosis without current pathological fracture (principal); E29.1 Testicular hypofunction; E34.9 Endocrine disorder, unspecified
CPT/HCPCS: 77080

== ENCOUNTER → 2024-04-29 07:07 | Outpatient (CLI) | payer MEDICARE, SELFPAY ==
[2023-06-05 10:24] VITALS: BMI 29.7
[2024-04-29 17:29] LABS: Prostate Specific Antigen 2.99 ng/mL (0.10-4.00)
[2024-04-29 17:31] LABS: Testosterone 224 ng/dL (71.8-623)
== END ==
PROVIDERS: Family Provider Family Medicine; PCP Family Medicine; Referring Provider Urology; Visit Provider Urology
DX: N40.2 Nodular prostate without lower urinary tract symptoms (principal); E29.1 Testicular hypofunction
CPT/HCPCS: 36415; 84153; 84403

== ENCOUNTER → 2024-06-03 06:48 | Outpatient (CLI) | payer MEDICARE, SELFPAY ==
[2023-06-05 10:24] VITALS: BMI 29.7
--- NOTE | 2024-06-03 06:49 | DI.CT.S_ITS ---
PROCEDURE: CT ABDOMEN WO CON INDICATIONS: 6 month re-check from US done 12/02/23 TECHNIQUE: After the administration of oral contrast, 5 mm thick sections acquired from the diaphragms to the iliac crests. 5 mm coronal and sagittal reformats were then performed. For radiation dose reduction, the following was used: automated exposure control, adjustment of mA and/or kV according to patient size. COMPARISON: [facility], US, US ABDOMEN LIMITED, 12/02/2023, 9:05. [facility], CT, CT ANGIO CHEST, 02/22/2023, 16:04. FINDINGS: Image quality: Diagnostic. Lower Chest: Dependent atelectasis. ABDOMEN: Liver: No contour-deforming mass. The previously seen lesion in the right lobe of the liver is not appreciated on this noncontrast exam. Gallbladder: No radiopaque gallstones or wall thickening. Biliary ducts: No biliary dilation. Pancreas: No ductal dilation. Spleen: Size is within normal limits. Adrenal Glands: No adrenal nodules. Kidneys and Ureters: No hydronephrosis. No kidney stones. No contour-deforming mass. Stomach and Bowel: Normal colonic caliber, without significant wall thickening. No small bowel obstruction. Normal appendix. Peritoneum: No abnormal intraperitoneal fluid. No free air. Ventral Wall: No hernia. Abdominal Nodes: No retroperitoneal or mesenteric adenopathy by size criteria. Vessels: Aorta and inferior vena cava are normal in size. Bones: No aggressive osseous abnormality. IMPRESSION: Evaluation is limited without IV contrast. No obvious hepatic mass. Recommend liver MRI for further evaluation. If IV contrast cannot be utilized due to poor kidney function, the liver can be evaluated for focal lesions on noncontrast MRI sequences. Lesion in the right lobe was not seen on prior ultrasound. Dictated by: Ramon Bentley M.D. on 06/03/2024 at 13:19 Approved by: Ramon Bentley M.D. on 06/03/2024 at 13:29
== END ==
LOC: CT 06:49
PROVIDERS: Family Provider Family Medicine; PCP Family Medicine; Referring Provider Family Medicine; Visit Provider Family Medicine
DX: D18.03 Hemangioma of intra-abdominal structures (principal); R93.89 Abnormal findings on diagnostic imaging of other specified body structures; J98.11 Atelectasis; K76.0 Fatty (change of) liver, not elsewhere classified
CPT/HCPCS: 74150

== ENCOUNTER → 2024-07-28 08:49 | Outpatient (CLI) | payer MEDICARE, SELFPAY ==
[2023-06-05 10:24] VITALS: BMI 29.7
[2024-07-28 10:39] LABS: Prostate Specific Antigen 2.84 ng/mL (0.10-4.00)
== END ==
PROVIDERS: Family Provider Family Medicine; PCP Family Medicine; Referring Provider Urology; Visit Provider Urology
DX: R97.20 Elevated prostate specific antigen [PSA] (principal)
CPT/HCPCS: 36415; 84153

== ENCOUNTER → 2024-08-06 08:03 | Outpatient (CLI) | payer MEDICARE, SELFPAY ==
[2023-06-05 10:24] VITALS: BMI 29.7
[2024-08-06 09:20] LABS: Testosterone 160 ng/dL (71.8-623)
== END ==
PROVIDERS: Family Provider Family Medicine; PCP Family Medicine; Referring Provider Urology; Visit Provider Urology
DX: E29.1 Testicular hypofunction (principal)
CPT/HCPCS: 36415; 84403

== ENCOUNTER 2024-12-27 15:53 | Emergency (ER) | payer MEDICARE, SELFPAY ==
[2023-06-05 10:24] VITALS: BMI 29.7
[2024-12-27 16:00] VITALS: BP 172/77; PULSE 55; RESP 18; TEMP 36.9; O2SAT 97; BMI 30.6
--- NOTE | 2024-12-27 17:09 | DI.CT.S_ITS ---
PROCEDURE: CT CHEST WO CON INDICATIONS: fall, rib pain TECHNIQUE: Noncontrast 5 mm thick sections acquired from the pulmonary apices to the posterior costophrenic angles. 1 mm lung window, 5 mm thick coronal and sagittal and 7 mm axial MIP reformats were then acquired. For radiation dose reduction, the following was used: automated exposure control, adjustment of mA and/or kV according to patient size. COMPARISON: [facility], CT, CT ABDOMEN WO CON, 06/03/2024, 7:38. Formerly [facility], CT, CT ANGIO CHEST, 02/22/2023, 16:04. FINDINGS: Image quality: Diagnostic. Lower Neck: No enlarged lymph nodes. Thyroid: No thyroid nodules which require sonographic follow up, per consensus guidelines. Axillae: No enlarged lymph nodes. Chest Wall: Unremarkable. Bones: No suspicious osseous lesion. No fracture or dislocation. Bilateral shoulder DJD. Lungs and Pleura: No pneumothorax or pleural effusions. No consolidation or suspicious nodules. Right major fissure pulmonary nodule measuring 0.5 cm, (3/179), unchanged. Has the appearance of a benign intrapulmonary lymph node. Heart: Heart size is normal. Moderate coronary artery calcifications. No pericardial effusion. Thoracic Vessels: The aorta and pulmonary arteries demonstrate normal size. Mediastinum and Amelie: No enlarged lymph nodes. Esophagus: No wall thickening. No significant hiatal hernia. Upper Abdomen: Visualized upper abdomen solid organs and bowel loops appear normal. Small nonobstructing right kidney stone. IMPRESSION: 1. No fracture. No acute airspace opacity. 2. Small nonobstructing right kidney stone. Dictated by: Ramon Bentley M.D. on 12/27/2024 at 17:22 Approved by: Ramon Bentley M.D. on 12/27/2024 at 17:29
[2024-12-27 18:10] VITALS: BP 170/75; PULSE 53; RESP 19; O2SAT 99
--- NOTE | 2024-12-27 18:32 | ED_ITS ---
HPI - Fall <Mayelin Best PA-C - Last Filed: 12/27/24 18:38> General Chief Complaint: Fall Stated Complaint: fell trouble breathing Time Seen by Provider: 12/27/24 16:17 Source: patient Mode of arrival: Ambulatory History of Present Illness HPI Narrative: 79-year-old male with past medical history hypertension, mitral valve regurgitation, AFib, on anticoagulation with warfarin presents to the ED status post a mechanical fall sustained just prior to arrival. Patient denies loss of consciousness or head strike. Patient states that he fell on his right side, his elbow hit his ribcage and the ribs are causing him the most pain currently. Patient has some abrasions to his right elbow and right knee, however he denies any pain at those locations. Patient does endorse pain in the ribs when he tries to take in a deep breath. Denies abdominal pain, nausea, vomiting. Denies lightheadedness, dizziness, syncope. Related Data Home Medications ?Medication ?Instructions ?Recorded ?Confirmed losartan 25 mg tablet 25 mg PO DAILY 01/12/2307/21 apixaban 5 mg tablet (Eliquis) 5 mg PO BID 06/10/23 Previous Rx's ?Medication ?Instructions ?Recorded metoprolol succinate 25 mg 25 mg PO BEDTIME #90 tabs 0 04/14/23 tablet,extended release 24 hr Allergies Allergy/AdvReac Type Severity Reaction Status Date / Time codeine AdvReac Nausea Verified 12/27/24 16:00 Iodinated Contrast Media AdvReac Swelling Verified 12/27/24 16:00 of the face Review of Systems <Mayelin Best PA-C - Last Filed: 12/27/24 18:38> Constitutional Constitutional: Denies chills, Denies fatigue, Denies fever(s), Denies frequent falls, Denies lethargy and Denies weakness Eyes Eyes: Denies change in vision, Denies eye discharge, Denies irritation and Denies loss of vision ENT Ears, Nose, Mouth, and Throat: Denies change in voice, Denies dizziness, Denies neck pain, Denies sore throat and Denies throat swelling Cardiovascular Cardiovascular: Denies chest pain, Denies irregular heart rhythm, Denies lightheadedness, Denies palpitations, Denies dyspnea, Denies dyspnea on exertion and Denies orthopnea Respiratory Respiratory: Denies cough, Denies dyspnea, Denies dyspnea on exertion and Denies wheezing Gastrointestinal Gastrointestinal: Denies abdominal pain, Denies change in bowel habits, Denies diarrhea, Denies nausea and Denies vomiting Musculoskeletal Musculoskeletal: Denies neck pain and Denies numbness Comments: Right-sided lower rib pain Integumentary/Breasts Skin/Breast: Denies pruritus, Denies erythema, Denies rash and Denies wounds Neurologic Neurologic: Denies behavioral changes, Denies confusion, Denies dizziness, Denies frequent falls, Denies loss of vision, Denies numbness and Denies weakness Psychiatric Psychiatric: Denies anxiety, Denies behavioral changes, Denies confusion, Denies depression, Denies homicidal ideation and Denies suicidal ideation Endocrine Endocrine: Denies fatigue, Denies flushing and Denies palpitations Hematologic/Lymphatic Hematologic/Lymphatic: Denies easy bruising Allergic/Immunologic Allergic/Immunologic: Denies urticaria, Denies throat swelling and Denies wheezing Patient History <Mayelin Best PA-C - Last Filed: 12/27/24 18:38> Medical History Benign prostatic 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 History of heart attack Allergic reaction to contrast dye History of inferior wall myocardial infarction Mitral valve regurgitation Actinic keratosis Chronic cough Migraines Mumps Measles Chicken pox Skin cancer Melanoma in situ (~2021) Gilbert syndrome (~1969) Hypertension (~1983) 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 Surgical History Hx of vasectomy Hx of prostate biopsy Hx of circumcision History of cerebral aneurysm repair Anesthesia H/O right knee surgery (~10/13/17) Status post right partial knee replacement (~01/26/18) Status post left partial knee replacement (~12/29/16) History of arthroscopic knee surgery (~1999) History of back surgery (~2000) History of rotator cuff surgery (~1996) Brain aneurysm (03/31/82) Family History Mother Cancer Stroke Father Cancer Social History marital status: number of children: 1 household members: spouse Smoking Status: Never smoker alcohol intake: never caffeine: Yes Type(s) of exercise: walking, bicycling and running Smoking Status: Never smoker alcohol intake frequency: 0-2 drinks per day Exam <Mayelin Best PA-C - Last Filed: 12/27/24 18:38> Narrative Exam Narrative: Const General:?cooperative, healthy appearing and comfortable [facility] Head:?normal to inspection Ears:?hearing grossly normal bilaterally Nose:?external nose normal Face and sinus:?normal facial exam and sinuses nontender Mouth:?oral mucosae normal Throat:?posterior oropharynx normal Eyes General:?appearance normal, both eyes and all related structures Neck Neck:?normal visual inspection and no lymphadenopathy noted Resp Effort & Inspection:?normal respiratory effort Auscultation:?clear to auscultation bilaterally Cardio Rate:?regular rate Rhythm:?regular rhythm GI Abdomen is soft, nondistended, nontender to palpation. Musculoskeletal There is tenderness to palpation of the right lower ribs. No bruising noted. Neuro General:?patient alert, patient awake and patient oriented x3 Initial Vital Signs Initial Vital Signs: Vital Signs Temperature 98.4 F 12/27/24 16:00 Pulse Rate 55 L 12/27/24 16:00 Respiratory Rate 18 12/27/24 16:00 Blood Pressure 172/77 H 12/27/24 16:00 Pulse Oximetry 97 12/27/24 16:00 Oxygen Delivery Method Room Air 12/27/24 16:00 <Raymundo Altman MD - Last Filed: 01/03/25 07:11> Initial Vital Signs Initial Vital Signs: Vital Signs Temperature 98.4 F 12/27/24 16:00 Pulse Rate 55 L 12/27/24 16:00 Respiratory Rate 18 12/27/24 16:00 Blood Pressure 172/77 H 12/27/24 16:00 Pulse Oximetry 97 12/27/24 16:00 Oxygen Delivery Method Room Air 12/27/24 16:00 Course <Mayelin Best PA-C - Last Filed: 12/27/24 18:38> Orders Ordered: ED Orders 12/27/24 17:09 CT chest wo con Stat Vital Signs Vital signs: Vital Signs - 8 hr 12/27/24 16:00 12/27/24 18:10 Temperature 98.4 F Pulse Rate 55 L 53 L Respiratory Rate 18 19 Blood Pressure 172/77 H 170/75 H Pulse Oximetry 97 99 Oxygen Delivery Method Room Air Room Air <Raymundo Altman MD - Last Filed: 01/03/25 07:11> Orders Ordered: ED Orders 12/27/24 17:09 CT chest wo con Stat Vital Signs Vital signs: Vital Signs - 8 hr 12/27/24 16:00 12/27/24 18:10 Temperature 98.4 F Pulse Rate 55 L 53 L Respiratory Rate 18 19 Blood Pressure 172/77 H 170/75 H Pulse Oximetry 97 99 Oxygen Delivery Method Room Air Room Air MDM - Fall <Mayelin Best PA-C - Last Filed: 12/27/24 18:38> MDM Narrative Medical decision making narrative: 79-year-old male with past medical history hypertension, mitral valve regurgitation, AFib, on anticoagulation with warfarin presents to the ED status post a mechanical fall sustained just prior to arrival. On physical exam, patient has tenderness to palpation of the right-sided lower ribs. There is some suspicion for possible rib contusion versus rib fracture. Given that patient is on warfarin, did consider doing a CT chest abdomen pelvis to look for rib fractures as well as internal bleeding. However, patient has a significant contrast allergy, he declines the contrast. Ordered CT chest without contrast which was without acute findings. There was an incidental finding of a nonobstructing right-sided kidney stone. Discussed findings with patient. Recommend supportive care with Tylenol, lidocaine patches. Recommend monitoring symptoms and returning to the ED if symptoms worsen or if abdominal pain occurs. ED return precautions discussed in detail with patient and patient's . They verbalized understanding. Medical records reviewed: Yes Discharge Plan Departure Patient Disposition: Home Clinical Impression: Rib pain Instructions: How to Prevent Falls Activity Restrictions/Additional Instructions: You were evaluated in the ED today for rib pain after a fall. The CT scan did not show any fractures or dislocations. The CT scan did show a right-sided kidney stone which is not obstructing and therefore should not be causing any symptoms at this time. This is just for you to be aware of in case you start having symptoms such as flank pain or abdominal pain. It appears that you might have bruised your ribs during the fall. You may take Tylenol or other pain medications for comfort. Please monitor your symptoms and return to the ED if you have worsening symptoms such as chest pain, shortness of breath, abdominal pain. Prescriptions: No Action Eliquis 5 mg tablet 5 mg PO BID metoprolol succinate 25 mg tablet extended release 24 hr 25 mg PO BEDTIME Qty: 90 3RF losartan 25 mg Tablet 25 mg PO DAILY Referrals: Triny Sanchez DO [Primary Care Provider, Family Practice] Stand Alone Forms: Patient Portal/API ED Sign-out <Raymundo Almtan MD - Last Filed: 01/03/25 07:11> [facility] I was immediately available in the department for consultation. ?This documentation has been reviewed and I agree with assessment and plan. Supervised by Raymundo Altman MD
== END 2024-12-27 18:04 | disposition home or self-care (01) ==
PROVIDERS: Emergency Provider Student in an Organized Health Care Education/Training Program; Family Provider Family Medicine; PCP Family Medicine
DX: R07.81 Pleurodynia (principal); W18.30XA Fall on same level, unspecified, initial encounter; Z79.01 Long term (current) use of anticoagulants
CPT/HCPCS: 71250; 99281; 99284

== ENCOUNTER → 2025-02-01 07:52 | Outpatient (CLI) | payer MEDICARE, SELFPAY ==
[2023-06-05 10:24] VITALS: BMI 29.7
[2025-02-01 09:36] LABS: Prostate Specific Antigen 2.98 ng/mL (0.10-4.00)
== END ==
PROVIDERS: Urology; Family Provider Family Medicine; PCP Family Medicine; Referring Provider Urology; Visit Provider Urology
DX: N40.2 Nodular prostate without lower urinary tract symptoms (principal); E29.1 Testicular hypofunction
CPT/HCPCS: 84153; 84403

== ENCOUNTER → 2025-05-20 08:07 | Outpatient (CLI) | payer MEDICARE, SELFPAY ==
[2023-06-05 10:24] VITALS: BMI 29.7
== END ==
PROVIDERS: PCP Family Medicine; Referring Provider Orthopaedic Surgery Adult Reconstructive Orthopaedic Surgery; Visit Provider Orthopaedic Surgery Adult Reconstructive Orthopaedic Surgery
DX: Z96.651 Presence of right artificial knee joint (principal)
CPT/HCPCS: 36415; 85651; 86140

== ENCOUNTER → 2025-06-23 06:56 | Outpatient (CLI) | payer MEDICARE, SELFPAY ==
[2023-06-05 10:24] VITALS: BMI 29.7
[2025-06-23 07:47] LABS: Add Manual Diff / Slide Review NO; Hematocrit 44.8 % (41-53); Hemoglobin 16.0 g/dL (13.5-17.5); Lymphocytes Absolute Auto 1400 /uL (1100-4500); Mean Corpuscular HGB Conc 35.6 % (30-36); Mean Corpuscular Hemoglobin 32.4 PG (26-34); Mean Corpuscular Volume 90.8 fL (80-100); Platelet Count 282 X10^3/uL (150-400)
[2025-06-23 08:07] LABS: Hemoglobin A1C% w Est Avg Glu 5.4 % (4.0-6.0)
[2025-06-23 08:28] LABS: Alanine Aminotransferase 24 IU/L (<50); Albumin 4.5 g/dL (3.5-5.0); Albumin Globulin Ratio 1.5 (1.0-2.8); Alkaline Phosphatase 106 U/L (38-126); Blood Urea Nitrogen 29 mg/dL (9-20); Calcium 9.5 mg/dL (8.4-10.2); Carbon Dioxide 30 mmol/L (22-32); Chloride 102 mmol/L (98-107); Cholesterol 187 mg/dL (140-199); Estimated Glomerular Filt Rate > 60 mL/min (>60); Globulin 3.1 g/dL (1.7-4.1); Glucose 105 mg/dL (70-99); HDL Cholesterol 47 mg/dL (40-60); HEMOLYSIS 22 (0-50); Potassium 5.2 mmol/L (3.4-5.1); Sodium 138 mmol/L (137-145); Total Protein 7.6 g/dL (6.3-8.2); Triglycerides 202 mg/dL (35-150)
== END ==
PROVIDERS: PCP Family Medicine; Referring Provider Family Medicine; Visit Provider Family Medicine
DX: I34.0 Nonrheumatic mitral (valve) insufficiency (principal); I25.2 Old myocardial infarction; K76.0 Fatty (change of) liver, not elsewhere classified; N40.1 Benign prostatic hyperplasia with lower urinary tract symptoms; R39.12 Poor urinary stream; Z98.890 Other specified postprocedural states; Z86.79 Personal history of other diseases of the circulatory system
CPT/HCPCS: 36415; 80053; 80061; 83036; 85025

== ENCOUNTER → 2025-06-30 07:40 | Outpatient (CLI) | payer MEDICARE, SELFPAY ==
[2023-06-05 10:24] VITALS: BMI 29.7
--- NOTE | 2025-06-30 07:41 | DI.US.S_ITS ---
PROCEDURE: US ABDOMEN LIMITED INDICATIONS: persistent elevated Bilirubin TECHNIQUE: Real-time scanning was performed of the abdominal and retroperitoneal organs, with image documentation. COMPARISON: [facility], , US ABDOMEN LIMITED, 12/02/2023, 9:05. FINDINGS: Liver: Liver is normal in size and increased in echogenicity. Gallbladder: No gallstones. No wall thickening. No pericholecystic edema. Negative sonographic Madison's sign. Biliary ducts: Intrahepatic bile ducts are non-dilated. Extrahepatic bile duct caliber measures 5 mm. Normal is 6-7 mm or less in diameter, or 10 mm or less post-cholecystectomy. Pancreas: Visualized portions of the pancreas are sonographically normal. Miscellaneous: No free abdominal fluid. IMPRESSION: Liver is increased in echogenicity, most consistent with hepatic steatosis. Gallbladder and visualized bile ducts are within normal limits. Dictated by: Tito Goncalves M.D. on 06/30/2025 at 11:16 Approved by: Tito Goncalves M.D. on 06/30/2025 at 11:17
== END ==
PROVIDERS: PCP Family Medicine; Referring Provider Family Medicine; Visit Provider Family Medicine
DX: R17 Unspecified jaundice (principal); K76.0 Fatty (change of) liver, not elsewhere classified; E80.4 Gilbert syndrome; D18.03 Hemangioma of intra-abdominal structures; T50.8X5D Adverse effect of diagnostic agents, subsequent encounter
CPT/HCPCS: 76705